=== PATIENT | male | born 1995 | race Caucasian/White ===

== ENCOUNTER 2022-09-03 08:59 | Emergency (ER) | payer SELFPAY ==
[2022-09-03 09:14] VITALS: BP 145/79; PULSE 103; RESP 16; TEMP 36.6; O2SAT 99
--- NOTE | 2022-09-03 10:24 | ED.URI ---
HPI - URI/Sore Throat General Chief Complaint: Upper Respiratory Infection Stated Complaint: fever cough fatigue Time Seen by Provider: 09/03/22 10:18 Source: patient Mode of arrival: ambulatory Limitations: no limitations History of Present Illness HPI Narrative: Patient presents today complaining of 3 day history of cough, body aches, fatigue, and intermittent fever up to 102. He has been taking DayQuil and Mucinex without much relief. Denies shortness of breath. Denies any history of asthma or COPD. He did not receive a flu vaccine this season. He did home COVID test that was negative. Related Data Home Medications Medication Instructions Recorded Confirmed No Home Medications 09/03/22 09/03/22 Allergies Allergy/AdvReac Type Severity Reaction Status Date / Time No Known Allergies Allergy Unverified 09/03/22 10:13 Review of Systems Review of Systems: CONSTITUTIONAL: Denies chills, or sweats.+ body aches, fever, fatigue EYES: Denies visual changes, redness, or discharge. ENT: Denies rhinorrhea, congestion, sore throat, or otalgia. CARDIOVASCULAR: Denies chest pain, palpitations, or edema. RESPIRATORY: Denies dyspnea.+ cough GASTROINTESTINAL: Denies abdominal pain, nausea, vomiting, or diarrhea. GENITOURINARY: Denies dysuria or hematuria. SKIN: Denies rash, itching, or wounds. MUSCULOSKELETAL: Denies back pain, joint pain, or myalgia. NEUROLOGIC: Denies headache, numbness, tingling, or weakness. PSYCH: Denies depression or anxiety. PMFSH Comments At time of signature, I have reviewed and agree with nursing past medical, surgical, social and family history unless otherwise noted. Please see nursing chart for further information. There is no relevant family history pertinent to the presenting complaint Exam Narrative: GENERAL: Mildly ill-appearing, well-nourished, and in no acute distress. HEAD: Normocephalic, atraumatic. EYES: EOMI. No redness or drainage. Conjunctivae normal. ENT: Mucous membranes pink and moist. Nares clear. No rhinorrhea. TMs normal bilaterally. Throat normal with tonsil stone on the right tonsil. Uvula midline. NECK: Normal AROM. Supple. No lymphadenopathy. CHEST: No respiratory distress. Clear to auscultation. HEART: Regular rate and rhythm. No murmur appreciated. Normal peripheral pulses. EXTREMITIES: Normal range of motion. No edema. SKIN: Warm, dry, no rash. Capillary refill normal. Normal skin turgor. NEURO: No focal deficits. Alert and oriented x3. Gait steady. PSYCH: Normal affect. No signs of depression or anxiety. Course Course Emergency Course: Patient declines influenza swab Level of Care: Express Care Visit Vital Signs Vital signs: Vital Signs Temperature 97.8 F 09/03/22 09:14 Pulse Rate 103 H 09/03/22 09:14 Respiratory Rate 16 09/03/22 09:14 Blood Pressure 145/79 H 09/03/22 09:14 Pulse Oximetry 99 09/03/22 09:14 Oxygen Delivery Room Air 09/03/22 09:14 Temperature 97.8 F 09/03/22 09:14 Pulse Rate 103 H 09/03/22 09:14 Respiratory Rate 16 09/03/22 09:14 Blood Pressure 145/79 H 09/03/22 09:14 Pulse Oximetry 99 09/03/22 09:14 Oxygen Delivery Room Air 09/03/22 09:14 Reviewed. Pt has been instructed to follow up with his PCP regarding his elevated blood pressure today. MDM - URI/Sore Throat Differential Diagnosis Differential diagnosis: Likely upper respiratory infection, viral infection, influenza and other (COVID-19) Critical Care Time Critical Care Time Critical Care Time: No Discharge Plan Discharge Clinical Impression: Upper respiratory infection Qualifiers: URI type: unspecified URI Qualified Code(s): J06.9 - Acute upper respiratory infection, unspecified Patient Disposition: Home, Self-Care Condition: Stable Instructions: Upper Respiratory Infection (DC) Additional Instructions: Your symptoms are likely due to a viral illness, which is not treated with antibiotics. Virus symptoms can l
== END 2022-09-03 10:30 | disposition home or self-care (01) ==
PROVIDERS: Emergency Provider Nurse Practitioner
DX: J06.9 Acute upper respiratory infection, unspecified (principal)
CPT/HCPCS: 99202; G0463

== ENCOUNTER 2025-04-28 15:12 | Emergency (ER) | payer OTHER, SELFPAY ==
--- OUTSIDE RECORDS SUMMARY | 2025-04-28 15:13 | XMS_ITS | Data Portability ---
Author Organization [facility] Address [address] [facility] [place] [address] Care Team Providers Care Rechecker Name Role Phone URIEL GARCIA Primary Care Provider Assessment No assessment recorded. Plan of Treatment Reminders Order Date Submit Date Provider Last Modified By Organization Details Last Modified Time Details Appointments ANY 15 2025 02:45P M URIEL GARCIA, FOREST FIRE SPECIALIST SUPERVISOR-BC Not available Not available Not available Lab lipid panel, serum 2024 025 [facility], [address] [place] [address], [address], 04/16/2025 14:42:56 CMP, serum or plasma 2024 025 [facility], [address] [place] [address], [place], [address], 04/16/2025 14:42:57 CBC w/ auto diff 2024 025 [facility], [address] [place] [address], [place], [address], 04/16/2025 14:42:57 TSH + free T4, serum 2024 025 [facility], [address] [place] [address], [facility] [address], [place], [address], 04/16/2025 14:42:57 hepatic function panel, serum 2024 025 [facility], [address] [place] [address], [place], [address], 04/16/2025 14:42:56 hepatitis panel (A+B+C), acute, serum 2024 025 [facility], [address] [place] [address] 2, [place], [address], 04/16/2025 14:49:15 lipid panel, serum 2022 023 [facility], [address] [place] [address], [place], [address], 08/10/2023 03:11:57 CMP, serum or plasma 2022 023 [facility], [address] [place] [address], [place], [address], 08/10/2023 03:11:56 CBC w/ auto diff 2022 023 [facility], [address] [place] [address], [place], [address], 08/10/2023 03:11:57 CMP, serum or plasma 2022 023 [facility], [address] [place] [address], [place], [address], 03/07/2023 11:21:32 CBC w/ auto diff 2022 023 [facility], [address] [place] [address], [place], [address], 02/28/2023 20:08:39 lipid panel, serum 2022 023 [facility], [address] [place] [address], [place], [address], 02/28/2023 20:08:38 TSH, ultra-sen sitive, serum 2022 023 [facility], [address] [place] [address], [place], [address], 03/01/2023 04:08:43 HbA1c (hemoglob in A1c), blood 2022 023 [facility], [address] [facility], [facility] 2, [place], [address], 03/01/2023 04:08:43 Referral sleep medicine referral 2024 025 LATRICE Soliman Rai, [address] [facility] , [facility] [address], [place], [address], 04/22/2025 13:31:36 sleep medicine referral 2022 023 [email or web address] [place], [address] [place], [address], 09/06/2023 12:33:11 nutrition ist/dieti kelsy referral 2022 0[address] [facility], [address] [facility] , [facility], [place], [address], 04/08/2023 16:33:41 sleep medicine referral 2022 023 [email or web address] Not available 03/10/2023 10:28:04 Procedures home sleep testing (PROC) 2022 023 [facility], [address] [facility] , [place], [address], 03/31/2023 13:40:53 Surgeries None recorded. Imaging None recorded. Medication Orders None recorded. Patient TargetsNo targets recorded. Patient Instructions Encounter Date Encounter Id Patient Instructions Last Modified By Organization Details Last Modified Time 02/28/2023 [id number] A healthy lifestyle: care instructions nsuthan Not available 02/28/2023 10:55:40 sleep apnea: car e instructions nsuthan Not available 02/28/2023 10:55:23 labs f/u in 3 month nsuthan Not available 02/28/2023 10:55:19 03/09/2023 [id number] Quitting Tobacco : Care Instructions [email or web address] Not available 03/09/2023 12:29:48 06/06/2023 [id number] A healthy lifestyle: care instructions nsuthan Not available 06/06/2023 11:11:13 Nonalcoholic Fat ty Liver Disease (NAFLD): Care Instructions nsuthan Not available 06/06/2023 11:11:13 diet /tdap - f/u in 4 month with lab nsuthan Not available 06/06/2023 11:10:29 04/16/2025 [id number] Quitting Tobacco : Care Instructions [email or web address] Not available 04/16/2025 14:42:49 A healthy lifestyle: care instructions [email or web address] Not available 04/16/2025 14:42:49 Plan of care has been discussed with patient including expected therapeutic benefits and potential side effects of prescribed medication and treatments. Patient verbalizes understanding and is in agreement with the plan of care. Patient was instructed to keep all scheduled appointments and contact the clinic for any additional problems. Health Maintenance: - CRC screening (45-75):Due at 45 years. - Osteoporosis screening: Due at 65. - Lipid screening (>45 unless additional risk factors): ordered - HIV: Declined - HepC: ordered -Eye exam: unknown -Dental Exam: unknown - Immunizations: - Influenza: Due fall. - Prevnar 20: Due at 65. - Tdap/Td (l42ymicw): 06/06/23 - Zoster (>60):Due at 60. - COVID-19: Declined - AAA screening (65-75): Due at 65. - Prostate ca screening (>50 or >45 if AA, +FH; d/w patient): Due at 50. -Labs ordered this visit: annual lab work [email or web address] Not available 04/16/2025 14:48:56 Reason for Referral Sleep Medicine Referral for Insomnia Referring Physician: Eyal Burgos, Internal Medicine, Encounter Date: 02/28/2023 Manager Corporate Marketing/dietitian Refer ral for Obesity Referring Physician: Eyal Burgos, Internal Medicine, Encounter Date: 02/28/2023 Sleep Medicine Referral for Obstructive sleep apnea syndrome Referring Physician: Eyal Burgos, Internal Medicine, Encounter Date: 06/06/2023 Sleep Medicine Referral for Obstructive sleep apnea syndrome Referring Physician: Family Maria R Medicine, Encounter Date: 04/16/2025 Results Created Date Observation Date Name Description Value Unit Range Abnormal Flag Note LastModifiedBy Organization Detail LastModifiedTime 02/29/20 23 02/28/2023 LIPID PANEL cholesterol, total 206.6 mg/dL 140.0- 200.0 above high normal Not Available [facility] Department [address] [place] [address], [address], 02/28/2023 20:08:38 02/29/20 23 02/28/2023 LIPID PANEL triglyceride s 252 mg/dL <=150 above high normal Not Available [facility] Department [address] [place] [address], [address], 02/28/2023 20:08:38 02/29/20 23 02/28/2023 LIPID PANEL HDL cholesterol 38.4 mg/dL 40.0-1 00.0 below low normal Not Available [facility] Department [address] [place], [address], 02/28/2023 20:08:38 02/29/20 23 02/28/2023 LIPID PANEL VLDL cholesterol zane 50.40 mg/dL 5.00-4 0.00 above high normal Not Available [facility] Department [address] [place] [address], [address], 02/28/2023 20:08:38 02/29/20 23 02/28/2023 LIPID PANEL LDL chol calc ([facility]) 123.6 mg/dL 0.0-99 .0 above high normal Not Available [facility] Department [address] [place], [address], 02/28/2023 20:08:38 02/29/20 23 02/28/2023 COMP. METAB OLIC PANEL (14) glucose 85 mg/dL 65-99 ANION GP 18.0 mmol/ L N OSMOL 281.0 mOsM/ L N REFER ENCE RANGE : 275.0 -301. 0 Not Available [facility] Department [address] [place] [address], [address], 02/28/2023 20:08:38 02/29/20 23 02/28/2023 COMP. METAB OLIC PANEL (14) BUN 13 mg/dL 8-26 Not Available [facility] Department [address] [place], [address], 02/28/2023 20:08:38 02/29/20 23 02/28/2023 COMP. METAB OLIC PANEL (14) creatinine 1.01 mg/dL 0.50-1 .40 Not Available [facility] Department [address] [place] [address], [address], 02/28/2023 20:08:38 02/29/20 23 02/28/2023 COMP. METAB OLIC PANEL (14) eGFR 106 mL/mi n/1.7 3 >=60 Not Available [facility] Department [address] [place] [address], [address], 02/28/2023 20:08:38 02/29/20 23 02/28/2023 COMP. METAB OLIC PANEL (14) BUN/creatini ne ratio 13.3 Not Available [facility] Department [address] [place], [address], 02/28/2023 20:08:38 02/29/20 23 02/28/2023 COMP. METAB OLIC PANEL (14) sodium 141.0 mmol/ L 136.0- 144.0 Not Available [facility] Department [address] [place], [address], 02/28/2023 20:08:38 02/29/20 23 02/28/2023 COMP. METAB OLIC PANEL (14) potassium 4.5 mmol/ L 3.5-5. 3 Not Available [facility] Department [address] [place], [address], 02/28/2023 20:08:38 02/29/20 23 02/28/2023 COMP. METAB OLIC PANEL (14) chloride 103 mmol/ l 101-11 1 Not Available [facility] Department [address] [place], [address], 02/28/2023 20:08:38 02/29/20 23 02/28/2023 COMP. METAB OLIC PANEL (14) carbon dioxide, total 24.6 mmol/ L 21.0-3 2.0 Not Available [facility] Department [address] [place], [address], 02/28/2023 20:08:38 02/29/20 23 02/28/2023 COMP. METAB OLIC PANEL (14) calcium 10.1 mg/dL 8.2-10 .0 above high normal Not Available [facility] Department [address] [place], [address], 02/28/2023 20:08:38 02/29/20 23 02/28/2023 COMP. METAB OLIC PANEL (14) protein, total 7.6 g/dL 6.7-8. 2 Not Available [facility] Department [address] [place], [address], 02/28/2023 20:08:38 02/29/20 23 02/28/2023 COMP. METAB OLIC PANEL (14) albumin 5.3 g/dL 3.5-5. 5 Not Available [facility] Department [address] [place], [address], 02/28/2023 20:08:38 02/29/20 23 02/28/2023 COMP. METAB OLIC PANEL (14) globulin, total 2.3 g/dL 1.5-4. 5 Not Available [facility] Department [address] [place], [address], 02/28/2023 20:08:38 02/29/20 23 02/28/2023 COMP. METAB OLIC PANEL (14) A/G ratio 2.3 Not Available [facility] Department [address] [place], [address], 02/28/2023 20:08:38 02/29/20 23 02/28/2023 COMP. METAB OLIC PANEL (14) bilirubin, total 0.6 mg/dL 0.0-1. 2 Not Available [facility] Department [address] [place], [address], 02/28/2023 20:08:38 02/29/20 23 02/28/2023 COMP. METAB OLIC PANEL (14) alkaline phosphatase 102.7 IU/L 42.0-1 21.0 Not Available [facility] Department [address] [place], [address], 02/28/2023 20:08:38 02/29/20 23 02/28/2023 COMP. METAB OLIC PANEL (14) AST (SGOT) 149.1 U/L 10.0-4 2.0 above high normal Not Available [facility] Department [address] [place], [address], 02/28/2023 20:08:38 02/29/20 23 02/28/2023 COMP. METAB OLIC PANEL (14) ALT (SGPT) 79.0 U/L 10.0-6 0.0 above high normal Not Available [facility] Department [address] [place], [address], 02/28/2023 20:08:38 02/29/20 23 02/28/2023 CBC WITH DIFFE RENTI AL/PL ATELE T WBC 8.1 K/uL 3.4-10 .8 Not Available [facility] Department [address] [place], [address], 02/28/2023 20:08:39 02/29/20 23 02/28/2023 CBC WITH DIFFE RENTI AL/PL ATELE T RBC 5.9 M/uL 4.5-6. 3 Not Available [facility] Department [address] [place], [address], 02/28/2023 20:08:39 02/29/20 23 02/28/2023 CBC WITH DIFFE RENTI AL/PL ATELE T hemoglobin 15.2 g/dL 13.5-1 7.5 Not Available [facility] Department [address] [place], [address], 02/28/2023 20:08:39 02/29/20 23 02/28/2023 CBC WITH DIFFE RENTI AL/PL ATELE T hematocrit 47.1 % 40.0-5 2.0 Not Available [facility] Department [address] [place], [address], 02/28/2023 20:08:39 02/29/20 23 02/28/2023 CBC WITH DIFFE RENTI AL/PL ATELE T MCV 80 fL 80-95 Not Available [facility] Department [address] [place], [address], 02/28/2023 20:08:39 02/29/20 23 02/28/2023 CBC WITH DIFFE RENTI AL/PL ATELE T MCH 26 pg 27-32 below low normal Not Available [facility] Department [address] [place], [address], 02/28/2023 20:08:39 02/29/20 23 02/28/2023 CBC WITH DIFFE RENTI AL/PL ATELE T MCHC 32 g/dL 32-36 Not Available [facility] Department [address] [place], [address], 02/28/2023 20:08:39 02/29/20 23 02/28/2023 CBC WITH DIFFE RENTI AL/PL ATELE T RDW 13.6 % 11.5-1 4.5 Not Available [facility] Department [address] [place], [address], 02/28/2023 20:08:39 02/29/20 23 02/28/2023 CBC WITH DIFFE RENTI AL/PL ATELE T platelets 242 K/uL 155-37 9 MPV 10.7 FL 8.9-1 2.7 N Not Available [facility] Department [address] [place], [address], 02/28/2023 20:08:39 02/29/20 23 02/28/2023 CBC WITH DIFFE RENTI AL/PL ATELE T neutrophils 68.3 % 40.0-7 4.0 Not Available [facility] Department [address] [place], [address], 02/28/2023 20:08:39 02/29/20 23 02/28/2023 CBC WITH DIFFE RENTI AL/PL ATELE T lymphs 20.5 % 14.0-4 6.0 Not Available [facility] Department [address] [place], [address], 02/28/2023 20:08:39 02/29/20 23 02/28/2023 CBC WITH DIFFE RENTI AL/PL ATELE T monocytes 6.3 % 4.0-12 .0 Not Available [facility] Department [address] [place], [address], 02/28/2023 20:08:39 02/29/20 23 02/28/2023 CBC WITH DIFFE RENTI AL/PL ATELE T eos 3 % 0-5 Not Available [facility] Department [address] [place], [address], 02/28/2023 20:08:39 02/29/20 23 02/28/2023 CBC WITH DIFFE RENTI AL/PL ATELE T basos 0.6 % 0.0-1. 0 Not Available [facility] Department [address] [place], [address], 02/28/2023 20:08:39 02/29/20 23 02/28/2023 CBC WITH DIFFE RENTI AL/PL ATELE T neutrophils (absolute) 5.5 K/uL 1.4-7. 0 Not Available [facility] Department [address] [place], [address], 02/28/2023 20:08:39 02/29/20 23 02/28/2023 CBC WITH DIFFE RENTI AL/PL ATELE T lymphs (absolute) 1.7 K/uL 0.7-3. 1 Not Available [facility] Department [address] [place], [address], 02/28/2023 20:08:39 02/29/20 23 02/28/2023 CBC WITH DIFFE RENTI AL/PL ATELE T monocytes(ab solute) 0.5 K/uL 0.1-0. 9 Not Available [facility] Department [address] [place], [address], 02/28/2023 20:08:39 02/29/20 23 02/28/2023 CBC WITH DIFFE RENTI AL/PL ATELE T eos (absolute) 0.2 K/uL 0.0-0. 4 Not Available [facility] Department [address] [place], [address], 02/28/2023 20:08:39 02/29/20 23 02/28/2023 CBC WITH DIFFE RENTI AL/PL ATELE T baso (absolute) 0.1 K/uL 0.0-0. 3 Not Available [facility] Department [address] [place], [address], 02/28/2023 20:08:39 02/29/20 23 02/28/2023 CBC WITH DIFFE RENTI AL/PL ATELE T immature granulocytes 1.7 % Not Available [facility] Department [address] [place], [address], 02/28/2023 20:08:39 02/29/20 23 02/28/2023 CBC WITH DIFFE RENTI AL/PL ATELE T immature grans (abs) 0.1 K/uL Not Available [facility] Department [address] [place], [address], 02/28/2023 20:08:39 02/29/20 23 02/28/2023 CBC WITH DIFFE RENTI AL/PL ATELE T NRBC 0 % Not Available [facility] Department [address] [place], [address], 02/28/2023 20:08:39 02/29/20 23 03/01/2023 HEMOG LOBIN A1C hemoglobin A1C 5.0 % 4.8-5. 6 Predi abete s: 5.7 - 6.4 Diabe shaka: >6.4 Glyce augustus contr ol for adult s with diabe shaka: <7.0 Not Available [facility] ([facility]) [address] [facility], [place], [address], 03/01/2023 04:08:42 02/29/20 23 03/01/2023 TSH TSH 2.550 uIU/m L 0.450- 4.500 Not Available [facility] ([facility]) [address] [facility], [place], [address], 03/01/2023 04:08:43 02/29/20 23 03/03/2023 HCV ANTIB SHARI hep C virus Ab NON REACTI VE nonrea ctive HCV antib shari alone does not diffe renti ate betwe en previ ously resol mike infec tion and activ e infec tion. Equiv ocal and React janet HCV antib shari resul ts shoul d be follo wed up with an HCV RNA test to suppo rt the diagn osis of activ e HCV infec tion. Not Available [facility] ([facility]) [address] [facility], [place], [address], 03/03/2023 05:10:17 03/30/2003/29/2023 home sleep testi ng (PROC ) No observ ation record ed. [address], [place], [address], 03/31/2023 17:08:04 Result Notes None recorded. Problems Name Problem SNOMED Code Status Onset Date Resolution Date Notes Provider Name and Address Organization Details Recorded Time Insomnia 380737017 Active 2022 Jose Burgos MD Attn: Issa [email or web address] [facility], [place], [address], [facility] 3 11:00:28 Liver function tests outside reference range 079756691 Active 2022 Jose Burgos MD Attn: Issa bosch[address] [facility], [place], [address], [facility] 3 11:00:25 Mixed hyperlipidemia 770881512 Active 2022 Jose Burgos MD Attn: Issa bosch[address] [facility], [place], [address], [facility] 3 12:01:49 Obstructive sleep apnea syndrome 02118901 Active 2022 Jose Burgos MD Attn: Issa bosch,[address] [facility], [place], [address], [facility] 3 11:03:50 Problem Notes None recorded. Procedures Surgical History Date Name Laterality Status Provider Name and Address Organization Details Recorded Time 11/28/19 25 release for de Quervain's tenosynovitis of hand completed Tere Barger MA [place] [facility] 04/16/2025 14:24:07 Imaging Results None recorded. Procedure Notes None recorded. Medical Equipment None Reported. Allergies No known drug allergies Medications Name Sig Start Date Stop Date Status Note LastModified by Organization Details LastModified Time hydrocodone 5 mg-acetamin ophen 325 mg tablet TAKE 1-2 TABLETS EVERY 4-6 HOURS NEEDED FOR SEVERE PAIN WHILE NOT AT WORK. DONT TAKE W TRAMADOL. 04/16 completed Not Available Not Available Not Available tramadol 50 mg tablet PLEASE SEE ATTACHED FOR DETAILED DIRECTION S 04/16 completed Not Available Not Available Not Available cephalexin 500 mg capsule TAKE 1 CAPSULE BY MOUTH 3 TIMES FOR 1 DAY ONLY. TAKE THE DAY AFTER SURGICAL PROCEDURE . 04/16 completed Not Available Not Available Not Available naproxen 500 mg tablet TAKE 1 TABLET ORALLY 2 TIMES A DAY WITH FOOD. DO NOT TAKE WITH OTHER ANTIINFLA MMATORIES . 04/16 completed Not Available Not Available Not Available Vitals Date Recorded Body height Body mass index (BMI) Body weight Heart rate Respiratory rate Body temperature Oxygen saturation Oxygen saturation in Arterial blood by Pulse oximetry Systolic And Diastolic Provider Name and Address Organization Details Last Updated DateTime 3 172.72 cm 34.3 kg/m2 495712. 44 g 75 /min 12 /min 97.3 [degF] 98 % 98 % 107/71 mm[Hg] Tere Barger MA [facility] 3 10:38:12 Date Recorded Body height Respiratory rate Body mass index (BMI) Body weight Body temperature Heart rate Oxygen saturation Oxygen saturation in Arterial blood by Pulse oximetry Systolic And Diastolic Provider Name and Address Organization Details Last Updated DateTime 3 172.72 cm 12 /min 34.3 kg/m2 781800. 44 g 97.8 [degF] 97 /min 99 % 99 % 130/82 mm[Hg] Catalina Fink MA [facility] 3 11:56:56 Date Recorded Body height Body mass index (BMI) Body weight Oxygen saturation Oxygen saturation in Arterial blood by Pulse oximetry Heart rate Respiratory rate Body temperature Provider Name and Address Organization Details Last Updated DateTime 5 178.05 cm 27.8 kg/m2 56563 g 98 % 98 % 91 /min 16 /min 97.2 [degF] Tere Barger MA [facility] 5 14:29:14 Date Recorded Body height Body mass index (BMI) Body weight Heart rate Respiratory rate Body temperature Oxygen saturation Oxygen saturation in Arterial blood by Pulse oximetry Systolic And Diastolic Provider Name and Address Organization Details Last Updated DateTime 3 172.72 cm 34.7 kg/m2 985115. 14 g 87 /min 12 /min 97.1 [degF] 98 % 98 % 119/79 mm[Hg] Tere Barger MA [facility] 3 10:52:23 Social History Question Answer Notes LastModified by Organizat ion Details LastModified Time Tobacco Smoking Status Former Smoker Quit - 2012 Tere Barger MA null, [facility] 06/06/2023 10:50:05 Are You Blind Or Do You Have Difficulty Seeing? No Information not available 02/28/2023 What Is Your Level Of Caffeine Consumption? Heavy Energy Drinks Information not available 02/28/2023 In The 14 Days Before Symptom Onset, Have You Had Close Contact With A Laboratory-confir med COVID-19 While That Case Was Ill? No Information not available 02/28/2023 In The 14 Days Before Symptom Onset, Have You Had Close Contact With A Person Who Is Under Investigation For COVID-19 While That Person Was Ill? No Information not available 02/28/2023 Have You Been To An Area Known To Be High Risk For COVID-19? No Information not available 02/28/2023 Are You Deaf Or Do You Have Serious Difficulty Hearing? No Information not available 02/28/2023 What Type Of Diet Are You Following? REGULAR Low Carbs Information not available 04/16/2025 What Is The Highest Grade Or Level Of School You Have Completed Or The Highest Degree You Have Received? [id number] Information not available 02/28/2023 Are There Any Guns Present In Your Home? Yes Information not available 02/28/2023 What Was The Date Of Your Most Recent Tobacco Screening? 04/16/2025 Information not available 04/16/2025 How Many Children Do You Have? 0 Information not available 04/16/2025 What Is Your Relationship Status? Information not available 06/06/2023 Do You Use Your Seat Belt Or Car Seat Routinely? Yes Information not available 02/28/2023 Are You Sexually Active? Yes Information not available 04/16/2025 Do You Have Smoke And Carbon Monoxide Detectors In Your Home? Yes Information not available 02/28/2023 At What Age Did You Start Smoking Tobacco? 17 Information not available 02/28/2023 Are You Passively Exposed To Smoke? No Information no t available 04/16/2025 How Much Tobacco Do You Smoke? 1 PPD Information not available 02/28/2023 Do You Use Sunscreen Routinely? No Information not available 02/28/2023 Has Tobacco Cessation Counseling Been Provided? Yes Information not available 02/28/2023 On What Date Was Tobacco Cessation Counseling Provided? 04/16/2025 Information not available 04/16/2025 Sex: Male Functional Status Question Answer Note LastModified by Organizat ion Details LastModified Time Do you use any illicit or recreational drugs? No Information not available 02/28/2023 Do you or have you ever used any other forms of tobacco or nicotine? Yes Information not available 02/28/2023 What is your level of alcohol consumption? Occasional Information not available 02/28/2023 Do you or have you ever used smokeless tobacco? Currently uses moist powdered tobacco Information not available 04/16/2025 Are you currently employed? Yes Information not available 02/28/2023 Are you able to care for yourself? Yes Information not available 02/28/2023 What is your occupation? [employer] Information not available 04/16/2025 Do you or have you ever used e-cigarettes or vape? Former user of electronic cigarettes 6 % nicotine, quit 06/2024 Information not available 04/16/2025 What is your exercise level? Occasional 2 - 3 x's weekly Information not available 02/28/2023 Mental Status Question Answer Note LastModified by Organizat ion Details LastModified Time Do you feel stressed (tense, restless, nervous, or anxious, or unable to sleep at night)? [id number] unable to sleep Information not available 04/16/2025 Family History Relationship Description Onset Age of this Age Resolved Age Notes LastModified by Organization Details LastModified Time Father Hypercholest erolemia Not available 2022 10:28:52 Father Hypertensive disorder Not available 2022 10:29:00 Unspecified Relation Family history of malignant neoplasm moms side Not available 02/28/2023 10:29:35 Medical History Condition Response Coronary Artery Disease N Other N Atrial Fibrillation N High Blood Pressure N Thyroid Problems N Kidney or Bladder Problems N GI Problems Y Depression N COPD N Blood Clots N Skin Problems N Anemia N Heart Attack (TN) N Anxiety Disorder N Diabetes N Muscle, Joint, or Bone Problems N Seizures/Epilepsy N Acid Reflux (GERD) Y Cancer N Stroke N Asthma N Allergies Y ADHD Y Substance Abuse N High Cholesterol N Hepatitis N Liver Disease N Schizophrenia N Headaches N Heart Failure N Osteoporosis N Immunizations Vaccine Type Date Status Note Provider Nam e and Address Organization Details Recorded Time DTaP 7 completed Not Available [facility] 04/16/2025 13:51:37 OPV 7 completed Not Available [facility] 04/16/2025 13:51:37 Hib-Hep B 7 completed Not Available [facility] 04/16/2025 13:51:37 Hib-Hep B 8 completed Not Available [facility] 04/16/2025 13:51:37 DTaP 8 completed Not Available [facility] 04/16/2025 13:51:37 OPV 8 completed Not Available [facility] 04/16/2025 13:51:37 Hib-Hep B 8 completed Not Available [facility] 04/16/2025 13:51:37 DTaP 8 completed Not Available [facility] 04/16/2025 13:51:37 DTaP 9 completed Not Available [facility] 04/16/2025 13:51:37 MMR 9 completed [facility] 04/16/2025 13:51:37 OPV 9 completed Not Available [facility] 04/16/2025 13:51:37 Hib, unspecified formulation 1 completed Not Available [facility] 04/16/2025 13:51:37 DTaP 3 completed Not Available [facility] 04/16/2025 13:51:37 IPV 3 completed Not Available [facility] 04/16/2025 13:51:37 MMR 3 completed Not Available [facility] 04/16/2025 13:51:37 Novel [id number] 9 completed Not Available [facility] 04/16/2025 13:51:37 HPV, unspecified formulation 2 completed Not Available [facility] 04/16/2025 13:51:37 Tdap 2 completed Not Available [facility] 04/16/2025 13:51:37 Hep A, ped/adol, 2 dose 2 completed Not Available [facility] 04/16/2025 13:51:37 HPV9 5 completed Not Available [facility] 04/16/2025 13:51:37 meningococcal MCV4P 5 completed Not Available [facility] 04/16/2025 13:51:37 Hep A, ped/adol, 2 dose 5 completed Not Available [facility] 04/16/2025 13:51:37 Tdap 0 completed Not Available [facility] 04/16/2025 13:51:37 Tdap 5 completed Not Available [facility] 04/16/2025 13:51:37 Tdap 3 completed Jose Burgos MD Attn: Accounting,[address], [place], [address], [facility] 06/07/2023 09:07:15 Past Encounters Encounter ID Performer Location Encounter Start Date Encounter Closed Date Diagnosis/Indication Diagnosis SNOMED-CT Code Diagnosis ICD10 Code Diagnosis [id number] [facility] [address] [place] [address] 02/28/2023 09:43:03 03/02/2023 10:40:41 Adult health examination 456973212 Z00.00 healthy diet and exercise discussed with pt Insomnia 929590215 G47.0 0 -check sleep study Obesity 491544806 E66.9 [id number] MD Cindi Rouse (Adult Med) [address] [place] [address] 03/09/2023 11:45:23 03/10/2023 08:58:26 Sleep disorder 58955858 G47.9 Will check home sleep studyESS- 18, symptomati c with increased mallampati Sleep hygiene discussed Vaping 066731681 Z77.29 [id number] MD Cindi Todd (Adult Med) [address] [place] [address] 06/06/2023 10:16:07 06/07/2023 14:07:49 Liver function tests outside reference range 776598109 R94.5 possibly due to fatty liver - educated on mediterran pedro diet /exercise /loose wt- avoid alcohol Obesity 263387052 E66.9 Administra tion of diphtheria, pertussis, and tetanus vaccine 042364433 Z23 Obstructiv e sleep apnea syndrome 72186310 G47.33 pt is on cpap which needs to be adjusted Mixed hyperlipidemia 267 959325 E78.2 healthy diet and exercise discussed with pt [id number] MD Cindi Chen (Adult Med) [address] [place] [address] 04/16/2025 13:46:51 04/28/2025 10:12:05 Obstructive sleep apnea syndrome 00115968 G47.33 -Reports poor compliance ; Encouraged to wear CPAP nightly.-r eferral placed for sleep medicine-E ducated on risks of untreated MARIANO (including heart attack or stroke) Mixed hyperlipidemia 267 885302 E78.2 -Uncontrol led-No medication therapy-Re check lipid panel-Jennie muñoz LFTs-Patie nt educated on the importance of diet, exercise and medication in the management of this condition. Overweight 765705278 E66 .3 Overweight in adulthood with body mass index of 25 or more but less than 30 521003216 Z68.27 -TOE PUNCHER advised patient to follow a well balanced diet and obtain regular exercise. Informatio nal handout provided. Tobacco user 106796582 Z 72.0 -Patient reports he started using tobacco at age 17. Patient reports he was a 1PPD smoker, but he quit in 2023. He uses oral tobacco currently. He uses 9mg pouches 10x per day.-The patient continues to use tobacco despite previous direction toquit. The patient is aware of risks of tobacco, which includes developing cancer, emphysema, and premature cardiovasc ular disease. Physical examination 588 0005 Z00.00 The patient was counseled regarding the appropriat e use ofalcohol, screening procedures and recommende d schedule for colonoscop y, psa, cholestero l, thyroid and diabetes screening, prevention of dental and periodonta l disease, diet, regular sustained exercise for at least 30 minutes 3-4 times per week, prostate cancer screening, regular use of seat belts.Jeremy mmend dilated eye exam and glaucoma screening every 2 years or as indicated by ophthalmol ogy Liver enzy mes level above reference range 594482082 R74.8 - last AST/ALT: 149.1/79.0 (02/28/23)- liver function panel ordered- hepatitis panel ordered- consider liver ultrasound pending results Depression screening positive 9108669935 92201 Z13.31 -PHQ-9 score: 4-Patient reports mood is stable at this time-Decli mary resources for mental health including psychiatry and psychology referrals and medication therapy Health Concerns Section Related Observation LastModified by Organization Detai ls LastModified Time None Recorded Concern Status LastModified by Organization Details LastModified Time None Recorded Advance Directives Directive None Recorded Payers Insurance Date Sequence Insurance Name Policy Number Policy Rosas Covered Member ID Rosas Member ID Guarantor Name 04/16/2025 2 *SELF PAY* Ry an Cat 03/03/2023 1 [facility] [id number] Jd Cat [id number] Jd Greenwood 03/03/2023 2 [facility] [id number] Cat [id number] Jd Cat 04/15/2025 1 [facility] [id number] Ray A Greenwood [id number] Jd Greenwood 04/16/2025 1 [employer] [id number] Jd A Greenwood [id number] Jd Shelton Notes Date Note Type Note Provider Name and Address Organization Details Recorded Time 02/28/2023 text/html New pt is here t o establish pcp, has noticed wt gain gradually with sleep issues /snoring /daytime sleepiness Jose Burgos MD Attn: Accounting,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 Patient was previously established with Dr. Saba for primary care. -Medical Hx/Surgical Hx: hyperlipidemia, MARIANO, insomnia, GERD, anxiety, and tobacco user. -Family hx:Mother: living-healthyFather: living-hypercholestero lemia, hypertensive disorderMaternal Grandmother: living-lung cancerMaternal Grandfather: living-cancer, amputeePaternal Grandmother: -mouth, throat, and stomach cancerPaternal Grandfather: -unknown -Tobacco/Drug/Alcohol Use:Patient reports he started using tobacco at age 17. Patient reports he was a 1PPD smoker, but he quit in 2023. He uses oral tobacco currently. He uses 9mg pouches 10x per day.Denies history of drug use.Reports rare alcohol use. Chicken pox: Patient reports history of chicken pox as child Marital status: Sexually active: Yes Occupation: tractor trailer truck driver Highest level of education: 11th grade Allergies: MUSA MARTINEZ Attn: Accounting,[address] , [place], [address], [facility] 04/28/2025 10:12:04
--- OUTSIDE RECORDS SUMMARY | 2025-04-28 15:13 | XMS_ITS | Continuity of Care Document ---
Author Organization [facility] [place] Address [address] [place] [address] [address] [place] [address] Phone Care Team Providers Care Slotter Operator Helper Name Role Phone Virgen Duong OT Unavailable Unavailable Procedures Procedure Date Identified as unhealthy alcohol user Jan Identified as unhealthy alcohol user rcv d counseling Unhealthy alcohol via screening rcvd cou nseling OT Re-Evaluation Therapeutic Activities Neuromuscular Re-Ed Therapeutic Exercise Manual Therapy Hot or Cold Pack Progress Note Therapeutic Activities Neuromuscular Re-Ed Therapeutic Exercise Manual Therapy Hot or Cold Pack Therapeutic Activities Neuromuscular Re-Ed Therapeutic Exercise Manual Therapy Hot or Cold Pack Progress Note Therapeutic Activities Neuromuscular Re-Ed Therapeutic Exercise Manual Therapy Hot or Cold Pack Therapeutic Activities Neuromuscular Re-Ed Therapeutic Exercise Manual Therapy Hot or Cold Pack Therapeutic Activities Neuromuscular Re-Ed Therapeutic Exercise Manual Therapy Hot or Cold Pack Therapeutic Activities Neuromuscular Re-Ed Therapeutic Exercise Manual Therapy Hot or Cold Pack Identified as unhealthy alcohol user Dec Identified as unhealthy alcohol user rcv d counseling Unhealthy alcohol via screening rcvd cou nseling OT Re-Evaluation Therapeutic Activities Neuromuscular Re-Ed Therapeutic Exercise Manual Therapy Hot or Cold Pack Therapeutic Activities Neuromuscular Re-Ed Therapeutic Exercise Manual Therapy Hot or Cold Pack Therapeutic Activities Neuromuscular Re-Ed Therapeutic Exercise Manual Therapy Hot or Cold Pack Identified as unhealthy alcohol user Dec Identified as unhealthy alcohol user rcv d counseling Unhealthy alcohol via screening rcvd cou nseling OT Evaluation Low Complexity Therapeutic Activities Neuromuscular Re-Ed Therapeutic Exercise Manual Therapy Hot or Cold Pack Therapeutic Activities Manual Therapy Neuromuscular Re-Ed Hot or Cold Pack Identified as unhealthy alcohol user Jan Identified as unhealthy alcohol user rcv d counseling Unhealthy alcohol via screening rcvd cou nseling OT Evaluation Low Complexity Therapeutic Activities Manual Therapy Hot or Cold Pack Advance Directives Directive Yes / No Effective Date File Name No Information Encounters Encounter Description Practice Location Reason(s) For Visit Diagnoses Date Provider Providers Copied on Encounter [facility], [address] [facility] [address], [place], [place], [id number], [place] tel:[phone] [facility] No Information Apr-1 6-202 5 Duong Virgen. . Referring Provider: Henry Das, [address], [place], [address]. tel:[phone] [facility], [address], [place], [place], [id number], [place] tel:[phone] [facility] No Information Apr-1 1-202 5 Duong Virgen. . Referring Provider: Henry Das, [address], [place], [address]. tel:[phone] [facility], [address], [place], [place], [id number], [place] tel:[phone] [facility] No Information Apr-0 7-202 5 Duong Virgen. . Referring Provider: Henry Das, [address], [place], [address]. tel:[phone] [facility], [address], [place], [place], [id number], [place] tel:[phone] [facility] No Information Apr-0 4-202 5 Duong Virgen. . Referring Provider: Henry Das, [address], [place], [address]. tel:[phone] [facility], [address], [place], [place], [id number], [place] tel:[phone] [facility] No Information Mar-3 1-202 5 Duong Virgen. . Referring Provider: Henry Das, [address], [place], [address]. tel:[phone] [facility], [address], [place], [place], [id number], [place] tel:[phone] [facility] No Information Mar-2 8-202 5 Duong Virgen. . Referring Provider: Henry Das, [address], [place], [address]. tel:[phone] [facility], [address], [place], [place], [id number], [place] tel:[phone] [facility] No Information Mar-2 4-202 5 Duong Virgen. . Referring Provider: Henry Das, [address], [place], [address]. tel:[phone] [facility], [address], [place], [place], [id number], [place] tel:[phone] [facility] No Information Mar-2 1-202 5 Duong Virgen. . Referring Provider: Henry Das, [address], [place], [address]. tel:[phone] [facility], [address], [place], [place], [id number], [place] tel:[phone] [facility] No Information Mar-1 7-202 5 Duong Virgen. . Referring Provider: Henry Das, [address], [place], [address]. tel:[phone] [facility], [address], [place], [place], [id number], [place] tel:[phone] [facility] No Information Mar-1 3-202 5 Duong Virgen. . Referring Provider: Henry Das, [address], [place], [address]. tel:[phone] [facility], [address], [place], [place], [id number], [place] tel:[phone] [facility] No Information Mar-1 2-202 5 Duong Virgen. . Referring Provider: Henry Das, [address], [place], [address]. tel:[phone] [facility], [address] [facility] [address], [place], [place], [id number], tel:[phone] [facility] No Information Jan-0 5 4 Ad Maganayenne. . Referring Provider: Alexei Kirkland, Formerly named [facility] [place], [address]. tel:[phone] [facility], [address] [facility] [address], [place], [place], [id number], tel:[phone] [facility] No Information Apr-0 4- 4 Ad Singhe. . Referring Provider: Alexei Kirkland, [address] [place], [address]. tel:[phone] Family History Family Member Type Diagnosis Age At Onset No Information Payers Payer name Insurance type Covered democrat ID Authorleodana elroy(s) [employer] EPO WC SP [id number] Social History Type Description Quantity Date Captured Comments Alcohol Use Details Unknown Caffeine Use Details Unknown Tobacco Use Status Current non-smoker Smoking Status Never smoker Non-Smoking Tobacco Use Details : No Details Available : No Details Available Sex Male Chief Complaint And Reason For Visit No Information Reason For Referral Reason For Referral No Information History Of Present Illness Encounter Date Complaint History Of Prese nt Illness No Information Functional Status Date Functional Assessmen t No Information Instructions Date Instruction Additional Infor mation No Information Assessments Type Assessment Date No Information Patient Care Teams Name Effective Dates (start - stop) Status Members No Information
--- NOTE | 2025-04-28 15:14 | ED_ITS ---
HPI - General Adult General Chief complaint: Upper Respiratory Infection Stated complaint: pink eye/covid Time Seen by Provider: 04/28/25 15:14 Source: patient Mode of arrival: ambulatory Limitations: no limitations History of Present Illness HPI narrative: 29-year-old male patient presents to [facility] with complaints of cold symptoms for the past 4-5 days. Patient states he has had bilateral conjunctivitis and red eyes, that he recently got a prescription antibiotic eyedrop for but has not picked it up from the pharmacy yet. Patient states he has also had some congestion coughing runny nose. Patient states he thinks he has been running a low-grade 99 fever. Some fatigue denies body aches or chills. Denies chest pain or shortness of breath. Related Data Home Medications ?Medication ?Instructions ?Recorded ?Confirmed ?Last Taken ?Type moxifloxacin 0.5 % eye drops drp 04/28/25 Unknown History Allergies Allergy/AdvReac Type Severity Reaction Status Date / Time No Known Allergies Allergy Unverified 09/03/22 10:13 Review of Systems Review of Systems: CONSTITUTIONAL: Positive low-grade fever, denies chills, or sweats. EYES: Denies visual changes, redness, or discharge. ENT: positive rhinorrhea, congestion, sore throat, denies otalgia. CARDIOVASCULAR: Denies chest pain, palpitations, or edema. RESPIRATORY: positive cough , denies dyspnea. GASTROINTESTINAL: Denies abdominal pain, nausea, vomiting, or diarrhea. GENITOURINARY: Denies dysuria or hematuria. SKIN: Denies rash or itching. MUSCULOSKELETAL: Denies back pain, joint pain, or myalgia. NEUROLOGIC: Denies headache, numbness, or weakness. PSYCHIATRIC: Denies anxiety or depression. [facility] Past Medical History Medical History (Updated 04/28/25 @ 16:00 by RACHEL Alfonso) No significant past medical history Comments At the time of my signature I agree with nursing past medical history, surgical, social, and family history. There is no relevant family history pertinent to the presenting complaint. Exam Narrative: GENERAL: Well-appearing, well-nourished, and in no acute distress. HEAD: Normocephalic, atraumatic. EYES: PERRLA and EOMI. ENT: Nares with erythema edema noted bilaterally, no rhinorrhea or epistaxis. Mucous membranes moist. posterior pharynx with no erythema, tonsillar enlargement, exudates or lesions present. Bilateral TMs are clear no erythema or foreign bodies the canal. NECK: Supple. No lymphadenopathy CHEST: Clear to auscultation. No respiratory distress. HEART: Regular rate and rhythm. No murmur heard. Normal peripheral pulses. ABDOMEN: Soft, nontender, nondistended, normal active bowel sounds. EXTREMITIES: Normal range of motion. No edema. SKIN: Warm, dry, no rash. NEURO: No focal deficits. Alert and oriented x3. Course Course Level of Care: Express Care Visit Vital Signs Vital signs: Vital Signs Temperature 36.3 C L 04/28/25 15:18 Pulse Rate 97 04/28/25 15:18 Respiratory Rate 04/28/25 15:18 Blood Pressure 120/67 04/28/25 15:18 Pulse Oximetry 100 04/28/25 15:18 Oxygen Delivery Room Air 04/28/25 15:18 Temperature 36.3 C L 04/28/25 15:18 Pulse Rate 97 04/28/25 15:18 Respiratory Rate 04/28/25 15:18 Blood Pressure 120/67 04/28/25 15:18 Pulse Oximetry 100 04/28/25 15:18 Oxygen Delivery Room Air 04/28/25 15:18 vital signs reviewed. Medical Decision Making MDM Narrative Medical decision making narrative: Plan care patient is to test him for COVID influenza and strep. If these are negative most likely will discharge home with symptoms support. Patient is aware plan of care Differential Diagnosis Differential Diagnosis: Differential diagnosis: Allergic rhinitis, chronic sinusitis, tonsillitis, acute sinusitis, infectious mononucleosis, seasonal influenza, pertussis, diphtheria, meningococcal disease, viral syndrome, viral bronchitis, RSV, COVID- 19 Vital Signs Vital Signs: Vital Signs Temperature 36.3 C L 04/28/25 15:18 Pulse Rate 97 04/28/25 15:18 Respiratory Rate 04/28/25 15:18 Blood Pressure 120/67 04/28/25 15:18 Pulse Oximetry 100 04/28/25 15:18 Oxygen Delivery Room Air 04/28/25 15:18 Temperature 36.3 C L 04/28/25 15:18 Pulse Rate 97 04/28/25 15:18 Respiratory Rate 04/28/25 15:18 Blood Pressure 120/67 04/28/25 15:18 Pulse Oximetry 100 04/28/25 15:18 Oxygen Delivery Room Air 04/28/25 15:18 Lab Data Labs: Lab Results 04/28/25 04/28/25 Range/Units 15:46 15:53 POC Influenza A Ag Negative (Negative) POC Influenza B Ag Negative (Negative) POC SARS CoV-2 Ag Negative (Negative) POC Grp A Strep Screen Negative (Negative) Critical Care Time Critical Care Time Critical Care Time: No Discharge Plan Discharge Clinical Impression: Viral URI with cough Patient Disposition: Home Condition: Stable Instructions: Antibiotic Form, Viral Syndrome (ED) Additional Instructions: Viral illness may last between 7-12days; antibiotic is NOT recommended at this time. Recommend antihistamine such as Benadryl at night time and Claritin/Zyrtec/Alena during the day Also, recommend symptomatic treatment includes: rest, fluids, and increase humidity of the air at home. Recommend Acetaminophen or nonsteroidal anti-inflammatory agents (NSAIDs) as directed in the bottle to reduce fever and/pain/headache. Avoid smoking/second-hand smoke. Limit visits to areas with large crowds. Please schedule a follow-up visit with your personal physician for further evaluation and treatment within 3-5days. Including recheck and discussion of your blood pressure. If your symptoms persist, change or worsen significantly before you can contact your personal physician then please, without delay, go to the emergency department for further evaluation. Patient Language: Nepali Prescriptions: No Action moxifloxacin 0.5 % drops Follow-up/Referrals: Christina Dalal RN [Primary Care Provider] - Time of Disposition: 16:00
--- OUTSIDE RECORDS SUMMARY | 2025-04-28 15:17 | XMS_ITS | Continuity of Care Document ---
Author Organization [employer] [place] Address [address] [place] [address] [address] [place] [address] Phone Care Team Providers Care Carpet Or Rug Layer Helper Name Role Phone Virgen Duong OT [...] or Cold Pack Therapeutic Activities Neuromuscular Re-Ed Manual Therapy Hot or Cold Pack Identified [...] Date Provider Providers Copied on Encounter [employer] [place], [address] [facility] [address], [place], [place], [id number], [place] tel:[phone] Dana No Information Apr-1 6-202 5 Duong Virgen. . Referring Provider: Henry Das, [address], [place], [address]. tel:[phone] [facility], [address], [place], [place], [id number], [place] tel:[phone] Dana No Information Apr-1 1-202 5 Duong Virgen. . Referring Provider: Henry Das, [address], [place], [address]. tel:[phone] [facility], [address], [place], [place], [id number], [place] tel:[phone] Dana No Information Apr-0 7-202 5 Duong Virgen. . Referring Provider: Henry Das, [address], [place], [address]. tel:[phone] [facility], [address], [place], [place], [id number], [place] tel:[phone] Dana No Information Apr-0 4-202 5 Duong Virgen. . Referring Provider: Henry Das, [address], [place], [address]. tel:[phone] [facility], [address], [place], [place], [id number], [place] tel:[phone] Dana No Information Mar-3 1-202 5 Duong Virgen. . Referring Provider: Henry Das, [address], [place], [address]. tel:[phone] [facility], [address], [place], [place], [id number], [place] tel:[phone] Dana No Information Mar-2 8-202 5 Duong Virgen. . Referring Provider: Henry Das, [address], [place], [address]. tel:[phone] [facility], [address], [place], [place], [id number], [place] tel:[phone] Dana No Information Mar-2 4-202 5 Duong Virgen. . Referring Provider: Henry Das, [address], [place], [address]. tel:[phone] [facility], [address], [place], [place], [id number], [place] tel:[phone] [place] No Information Mar-2 1-202 5 Duong Virgen. . Referring Provider: Henry Das, [address], [place], [address]. tel:[phone] [facility], [address], [place], [place], [id number], [place] tel:[phone] Dana No Information Mar-1 7-202 5 Duong Virgen. . Referring Provider: Henry Das, [address], [place], [address]. tel:[phone] [facility], [address], [place], [place], [id number], [place] tel:[phone] Dana No Information Mar-1 3-202 5 Duong Virgen. . Referring Provider: Henry Das, [address], [place], [address]. tel:[phone] [facility], [address], [place], [place], [id number], [place] tel:[phone] Dana No Information Mar-1 2-202 5 Duong Virgen. . Referring Provider: Henry Das, [address], [place], [address]. tel:[phone] [facility], [address] [facility] [address], [place], [place], [id number], tel:[phone] Dana No Information Jan-0 5 4 Ad Maganayenne. . Referring Provider: Alexei Kirkland, [facility] [place], [address]. tel:[phone] [facility], [address] [facility] [address], [place], [place], [id number], tel:[phone] [place] No Information Apr-0 4- 4 Ad Singhe. . Referring Provider: Alexei Kirkland, [address] [place], [address]. tel:[phone] Family History Family Member Type Diagnosis Age At Onset No Information Payers Payer name Insurance type Covered libertarian ID Authorleodana elroy(s) [employer] EPO WC SP WC [id number] Social History Type Description Quantity Date Captured [...]
[2025-04-28 15:18] VITALS: BP 120/67; PULSE 97; RESP 20; TEMP 36.3; O2SAT 100
[2025-04-28 15:48] LABS: EDSTREPNEGPOS1 Negative (Negative)
[2025-04-28 15:55] LABS: EDCOVIDSCREEN Negative (Negative); EDINFLUASCREEN Negative (Negative); EDINFLUBSCREEN Negative (Negative)
== END 2025-04-28 16:10 | disposition home or self-care (01) ==
PROVIDERS: Emergency Provider Nurse Practitioner Family
DX: J06.9 Acute upper respiratory infection, unspecified (principal); R05.9 Cough, unspecified; Z20.822 Contact with and (suspected) exposure to COVID-19
CPT/HCPCS: 87081; 87426; 87804; 87880; 99212; G0463

== ENCOUNTER 2025-04-30 17:55 | Emergency (ER) | payer OTHER, SELFPAY ==
[2025-04-30 18:12] VITALS: BP 127/86; PULSE 121; RESP 16; TEMP 37.1; O2SAT 100
--- NOTE | 2025-04-30 18:19 | ED.URI ---
HPI - URI/Sore Throat General Chief Complaint: Upper Respiratory Infection Stated Complaint: Fever/[place] Eye/Diarrhea/Cough Time Seen by Provider: 04/30/25 18:30 Source: patient and RN notes reviewed Mode of arrival: ambulatory Limitations: no limitations History of Present Illness HPI Narrative: 29-year-old male presents with concern for 6 day history of cough, runny nose, stuffy nose, bilateral eye drainage, itchiness, tenderness. He reports he was seen few days ago and has not gotten any better. Reports his cough has become more painful and productive. He reports general malaise, denies fever, aches, chills, sweats. He previously had eye drops prescribed from an online telehealth, however the pharmacy has not been able to fill them because they are not in stock. So he has not started eye drops yet. MD elicited complaint: cough Related Data Allergies Allergy/AdvReac Type Severity Reaction Status Date / Time No Known Allergies Allergy Unverified 04/30/25 18:14 Review of Systems Review of Systems: CONSTITUTIONAL: Reports malaise. Denies chills, sweats, or fever. EYES: Denies visual changes. Reports bilateral redness, irritation, discharge. ENT: Reports rhinorrhea, congestion, otalgia and sore throat. CARDIOVASCULAR: Denies chest pain, palpitations, or edema. RESPIRATORY: Reports painful productive cough. Denies dyspnea. GASTROINTESTINAL: Denies abdominal pain, nausea, vomiting, diarrhea SKIN: Denies rash or itching. MUSCULOSKELETAL: Denies myalgia. NEUROLOGIC: Denies headache. All systems reviewed & are unremarkable except as noted in HPI and below PMFSH Past Medical History Medical History (Updated 04/30/25 @ 18:39 by Emma Kumar NP) No significant past medical history Comments At time of signature, agree with nursing past medical, surgical, social and family history. There is no relevant family history pertinent to the presenting complaint Exam Narrative: GENERAL: Well-appearing, well-nourished, and in no acute distress. HEAD: Normocephalic EYES: PERRLA, conjunctivae clear ENT: Nares clear, turbinates edematous and erythematous, clear discharge. Mucous membranes moist. TM pearly jean with dull light reflex bilaterally; no tragal tenderness. Oropharynx not erythematous without lesions. Tonsils not enlarged and without exudate, no drooling, no hoarseness, no trismus, uvula midline. NECK: Supple. No lymphadenopathy CHEST: Clear to auscultation, breath sounds equal. No wheezing, rhonchi, rales, or stridor. No respiratory distress, speaks in full sentences. HEART: Regular rate and rhythm. No murmur heard. SKIN: Warm, dry, no rash. NEURO: Alert and oriented x3. PSYCH: Normal mood and affect Course Course Emergency Course: Patient is aware of diagnosis, understands and agrees to treatment plan. Anticipatory guidance given. Patient agrees to follow-up as directed and is aware of reasons to seek care at the emergency department. Portions of this record may have been created with voice recognition software Level of Care: Express Care Visit Vital Signs Vital signs: Vital Signs Temperature 98.8 F 04/30/25 18:12 Pulse Rate 121 H 04/30/25 18:12 Respiratory Rate 16 04/30/25 18:12 Blood Pressure 127/86 04/30/25 18:12 Pulse Oximetry 100 04/30/25 18:12 Temperature 98.8 F 04/30/25 18:12 Pulse Rate 121 H 04/30/25 18:12 Respiratory Rate 16 04/30/25 18:12 Blood Pressure 127/86 04/30/25 18:12 Pulse Oximetry 100 04/30/25 18:12 Reviewed. MDM - URI/Sore Throat MDM Narrative Medical decision making narrative: Differential diagnosis considered: Phillips virus, strep pharyngitis, allergic rhinitis, upper respiratory tract infection, sinusitis, rhinosinusitis, nasopharyngitis. viral pharyngitis, otitis media, otitis externa, pneumonia, bronchitis, viral cough syndrome, viral syndrome, and influenza. Exam findings show no acute concerns or changes; patient is non-toxic appearing and is in no distress. Patient is appropriate for outpatient treatment and follow-up. Lab Data Attestation: I reviewed the patient's lab results. Critical Care Time Critical Care Time Critical Care Time: No Discharge Plan Discharge Clinical Impression: Bronchitis, Conjunctivitis Patient Disposition: Home Condition: Stable Instructions: Acute Bronchitis (ED), Conjunctivitis (ED) Additional Instructions: Take medication as prescribed Viral illness may last between 7-21 days; antibiotics do not cure viral illness and are NOT recommended at this time. Recommend antihistamine such as Benadryl at night time and Zyrtec or Alena during the day Cough syrup may cause drowsiness; avoid driving or take it at night time. Also, recommend symptomatic treatment includes: rest, fluids, and increase humidity of the air at home. Recommend Acetaminophen as directed on the bottle to reduce fever, pain, headache. Avoid smoking/second-hand smoke. Please schedule a follow-up visit with your personal physician for further evaluation and treatment within 3-5days. Including recheck and discussion of your blood pressure. If your symptoms persist, change or worsen significantly before you can contact your personal physician then please, without delay, go to the emergency department for further evaluation. Patient Language: Nepalese Prescriptions: New albuterol sulfate 90 mcg/actuation HFA aerosol inhaler 2 puff INHALATION QID PRN (Reason: shortness of breath or wheezing) Qty: 8.5 0RF methylprednisolone [Medrol (Payam)] 4 mg tablets,dose pack See Rx Instructions .ROUTE .COMPLEX Qty: 21 0RF Rx Instructions: orally per package directions promethazine-DM 6.25-15 mg/5 mL syrup 5 ml PO Q4-6H PRN (Reason: cough) Qty: 120 0RF polymyxin B sulf-trimethoprim 10,000 unit- 1 mg/mL drops 1 drp EACH EYE Q3H 7 Days Qty: 10 0RF Rx Instructions: while awake; do not exceed 6 doses in 24 hours Discontinued moxifloxacin 0.5 % drops Follow-up/Referrals: Christina Dalal RN [Primary Care Provider] -
== END 2025-04-30 18:45 | disposition home or self-care (01) ==
PROVIDERS: Emergency Provider Nurse Practitioner; PCP Nurse Practitioner Family
DX: J40 Bronchitis, not specified as acute or chronic (principal); H10.9 Unspecified conjunctivitis
CPT/HCPCS: 99213; G0463